=== PATIENT | male | born 1960 | race Caucasian/White ===

== ENCOUNTER 2022-01-23 13:43 | Emergency (ER) | payer OTHER ==
[2022-01-23] MEDS ORDERED: methylPREDNISolone Sodium Succinate 40 MG/1 ML SDV IVPUSH ONE (13:44)
[2022-01-23] MEDS ORDERED: EPINEPHrine 1 MG/ML SDV IM ONE (17:06)
[2022-01-23] MEDS ORDERED: Lactated Ringers 1,000 ML IV ONE (17:46)
== END 2022-01-23 19:02 | disposition home or self-care (01) ==
LOC: JP.ED 13:43
DX: T78.2XXA Anaphylactic shock, unspecified, initial encounter (principal); Z91.030 Bee allergy status; Z79.899 Other long term (current) drug therapy
CPT/HCPCS: 96361; 96372; 96374; 99282; J0171; J2920; J7120

== ENCOUNTER 2024-12-31 11:16 | Emergency (ER) | payer MEDICARE, OTHER ==
[2024-12-31 11:42] LABS: BASOPHILS ABSOLUTE AUTO 0.03 K/uL (0.00-0.10); BASOPHILS PERCENT AUTO 0.4 % (0.1-1.3); EOSINOPHILS ABSOLUTE AUTO 0.09 K/uL (0.00-0.40); EOSINOPHILS PERCENT AUTO 1.1 % (0.0-5.4); HEMATOCRIT 43.7 % (38.4-49.7); HEMOGLOBIN 14.8 g/dL (12.9-16.9); IMMATURE GRAN PERCENT AUTO 0.1 % (0.0-0.7); LYMPHOCYTES ABSOLUTE AUTO 3.98 K/uL (0.8-3.3); LYMPHOCYTES PERCENT AUTO 48.7 % (11.4-47.7); MEAN CORPUSCULAR HEMOGLOBIN 31.1 pg (31.6-35.5); MEAN CORPUSCULAR HGB CONC 33.9 g/dL (31.6-35.5); MEAN CORPUSCULAR VOLUME 91.8 fL (81.4-99.0); MONOCYTES PERCENT AUTO 6.1 % (3.3-12.6); NEUTROPHILS ABSOLUTE AUTO 3.57 K/uL (1.0-7.6); NEUTROPHILS PERCENT AUTO 43.6 % (40.0-78.1); PLATELET COUNT,PLT 184 K/uL (130-375); RED BLOOD CELL COUNT 4.76 M/uL (4.14-5.76); WHITE BLOOD CELL COUNT,WBC 8.2 K/uL (3.2-11.0)
[2024-12-31 11:45] LABS: IMMATURE GRAN ABSOLUTE AUTO 0.01 K/uL (0.00-0.23)
[2024-12-31 11:58] LABS: PROTHROMBIN TIME 10.4 sec (9.2-10.6)
[2024-12-31 12:03] LABS: ALANINE AMINOTRANSFERASE,ALT 51 U/L (12-78); ALBUMIN 3.7 g/dL (3.4-5.0); ALKALINE PHOSPHATASE 124 U/L (46-116); ASPARTATE AMNIOTRANSFERASE,AST 31 U/L (15-37); BILIRUBIN TOTAL 0.5 mg/dL (0.2-1.0); BLOOD UREA NITROGEN,BUN 16 mg/dL (7-18); CALCIUM 9.2 mg/dL (8.5-10.1); CARBON DIOXIDE,CO2 30 mmol/L (21-32); CHLORIDE,CL 103 mmol/L (100-108); ESTIMATED GFR 84 mL/min (>60); GLUCOSE RANDOM 102 mg/dL (74-106); POTASSIUM,K 4.2 mmol/L (3.6-5.2); PROTEIN TOTAL,TP 7.4 g/dL (6.4-8.2); SODIUM,NA 138 mmol/L (140-148)
[2024-12-31] MEDS: Sodium Chloride 0.9% 80 ML IV SCH (12:18)
[2024-12-31] MEDS: Iopamidol 612 MG/ML 100 ML Bottle IV SCH (12:18)
[2024-12-31] MEDS: Sodium Chloride 0.9% 10 ML Syringe FLUSH ONE (12:18)
[2024-12-31 12:38] LABS: ANION GAP 9.2 mmol/L (5.0-14.0)
== END 2024-12-31 13:54 | disposition home or self-care (01) ==
LOC: JP.ED 11:16
DX: K64.9 Unspecified hemorrhoids (principal); Z91.030 Bee allergy status; Z79.899 Other long term (current) drug therapy; Z86.16 Personal history of COVID-19
CPT/HCPCS: 36415; 74177; 80053; 85025; 85610; 99284; Q9967; 99283